=== PATIENT | female | born 1995 | race Caucasian/White ===

== ENCOUNTER 2016-08-23 19:36 | Emergency (ER) | payer MEDICAID, OTHER ==
[~2016-08-23] VITALS: Ht 167.6 cm; Wt 60.0 kg
[~2016-08-23 19:36] MED LIST: BACT800T5 PO; DICY1TAB26 PO; IBUP600 PO; IBUP600T26 PO; OXYC1SOL5 PO; PREN0.01 PO
[2016-08-23 19:39] VITALS: BP 124/66; PULSE 79; RESP 16; TEMP 98.5; O2SAT 98
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
[2016-08-23] MEDS ORDERED: BACT800T5 PO (21:42)
== END 2016-08-23 23:34 | disposition home or self-care (01) ==
LOC: NEPD 19:36
DX: T24.322A Burn of third degree of left knee, initial encounter (principal); W86.0XXA Exposure to domestic wiring and appliances, initial encounter; Y93.84 Activity, sleeping
CPT/HCPCS: 86403; 87070; 99283